=== PATIENT | female | born 1935 | race Caucasian/White ===

== ENCOUNTER 2021-01-18 10:59 | Outpatient (CLI) | payer OTHER | END 2021-01-18 11:00 | disposition home or self-care (01) | LOC: CSHWCC 10:59 | PROVIDERS: ATTEND Nurse Practitioner Family | DX: I87.312 Chronic venous hypertension (idiopathic) with ulcer of left lower extremity (principal); I87.2 Venous insufficiency (chronic) (peripheral); L97.322 Non-pressure chronic ulcer of left ankle with fat layer exposed; L97.422 Non-pressure chronic ulcer of left heel and midfoot with fat layer exposed; R60.0 Localized edema; E03.9 Hypothyroidism, unspecified; G89.11 Acute pain due to trauma; I25.10 Atherosclerotic heart disease of native coronary artery without angina pectoris; I70.25 Atherosclerosis of native arteries of other extremities with ulceration; J40 Bronchitis, not specified as acute or chronic; L08.89 Other specified local infections of the skin and subcutaneous tissue; B96.89 Other specified bacterial agents as the cause of diseases classified elsewhere; L30.8 Other specified dermatitis | CPT/HCPCS: 11042; 29581; 99213; G0463 ==

== ENCOUNTER 2021-02-15 10:55 | Outpatient (CLI) | payer OTHER | END 2021-02-15 10:56 | disposition home or self-care (01) | LOC: CSHWCC 10:55 | PROVIDERS: ATTEND Nurse Practitioner Family | DX: I87.312 Chronic venous hypertension (idiopathic) with ulcer of left lower extremity (principal); L97.322 Non-pressure chronic ulcer of left ankle with fat layer exposed; L97.422 Non-pressure chronic ulcer of left heel and midfoot with fat layer exposed; E03.9 Hypothyroidism, unspecified; I10 Essential (primary) hypertension; I25.10 Atherosclerotic heart disease of native coronary artery without angina pectoris; I70.25 Atherosclerosis of native arteries of other extremities with ulceration; I87.2 Venous insufficiency (chronic) (peripheral); J40 Bronchitis, not specified as acute or chronic; L08.89 Other specified local infections of the skin and subcutaneous tissue; B96.89 Other specified bacterial agents as the cause of diseases classified elsewhere; L30.8 Other specified dermatitis | CPT/HCPCS: 29581; 99213; G0463 ==

== ENCOUNTER 2021-03-14 13:23 | Outpatient (CLI) | payer OTHER | END 2021-03-14 13:24 | disposition home or self-care (01) | LOC: CSHWCC 13:23 | PROVIDERS: ATTEND Nurse Practitioner Family | DX: I87.312 Chronic venous hypertension (idiopathic) with ulcer of left lower extremity (principal); I87.2 Venous insufficiency (chronic) (peripheral); L97.322 Non-pressure chronic ulcer of left ankle with fat layer exposed; I70.25 Atherosclerosis of native arteries of other extremities with ulceration; E03.9 Hypothyroidism, unspecified; G89.11 Acute pain due to trauma; I25.10 Atherosclerotic heart disease of native coronary artery without angina pectoris; J40 Bronchitis, not specified as acute or chronic; L08.89 Other specified local infections of the skin and subcutaneous tissue; B96.89 Other specified bacterial agents as the cause of diseases classified elsewhere; L30.8 Other specified dermatitis; R60.0 Localized edema ==

== ENCOUNTER 2021-06-13 09:29 | Outpatient (CLI) | payer OTHER | END 2021-06-13 09:30 | disposition home or self-care (01) | LOC: CSHWCC 09:29 | PROVIDERS: ATTEND Nurse Practitioner Family | DX: I87.312 Chronic venous hypertension (idiopathic) with ulcer of left lower extremity (principal); I87.2 Venous insufficiency (chronic) (peripheral); L97.322 Non-pressure chronic ulcer of left ankle with fat layer exposed; L97.422 Non-pressure chronic ulcer of left heel and midfoot with fat layer exposed; E03.9 Hypothyroidism, unspecified; G89.11 Acute pain due to trauma; I25.10 Atherosclerotic heart disease of native coronary artery without angina pectoris; I70.25 Atherosclerosis of native arteries of other extremities with ulceration; J40 Bronchitis, not specified as acute or chronic; L08.89 Other specified local infections of the skin and subcutaneous tissue; B96.89 Other specified bacterial agents as the cause of diseases classified elsewhere; L30.8 Other specified dermatitis; R60.0 Localized edema | CPT/HCPCS: 11042; 99213; G0463 ==